=== PATIENT | male | born 1940 | race Caucasian/White ===

== ENCOUNTER 2022-04-02 11:25 | Outpatient (CLI) | payer OTHER | END 2022-04-02 11:26 | disposition home or self-care (01) | LOC: CSHLAB 11:25 | PROVIDERS: ATTEND Internal Medicine Hematology & Oncology | DX: Z20.822 Contact with and (suspected) exposure to COVID-19 (principal); C90.00 Multiple myeloma not having achieved remission | CPT/HCPCS: 87811 ==